=== PATIENT | female | born 1985 | race Caucasian/White ===

== ENCOUNTER 2023-03-01 09:30 | Day surgery (SDC) | payer OTHER, SELFPAY ==
--- NOTE | ~2023-03-01 | FL_ITS ---
EXAMINATION: FL GUIDED LUMBAR PUNCTURE CLINICAL INFORMATION: Pseudotumor cerebri. COMPARISON: Lumbar puncture 12/31/2019. TECHNIQUE: Following explaining fluoroscopy guidance lumbar puncture procedure, benefits and risk, a written consent was obtained. Patient was placed prone on fluoroscopy table and optimal site was selected along the L4-L5 disc level and marked on the skin. The marked area on the skin was cleaned and draped in the usual sterile manner with 2% chlorhexidine solution. 1% lidocaine was injected at puncture site. Under fluoroscopy guidance, a 22-gauge needle was advanced from the skin intrathecally at the L4-L5 disc level. After removing the stylet and observing CSF return, patient was quickly placed in left lateral decubitus position and opening CSF pressure was obtained. Subsequently, clear CSF fluid was collected in 4 test tubes. Postprocedure stylet was reintroduced and needle withdrawn. Complete hemostasis was achieved at puncture site. Sterile dressing applied postprocedure. Patient tolerated the procedure extremely well. FINDINGS: On the images obtained, the vertebral heights and alignment of the lower lumbar spine are normal. The opening CSF pressure measured 22 cm of water. Approximately clear CSF 11 mL was obtained and sent to lab as per referring physician's orders. FLUOROSCOPY TIME: 0.3 minutes DOSE AREA PRODUCT: 2.530 uGy-m2 (microgray-meter squared) FL/FL guided lumbar puncture LP IMPRESSION: Successful fluoroscopic-guided lumbar puncture performed without immediate complications. The opening CSF pressure measured 22 cm of water.
[2023-03-01 09:59] LABS: MANUAL DIFF FLAG NO
[2023-03-01 10:01] LABS: UPreg QC Valid YES; Urine Pregnancy NEGATIVE (NEGATIVE)
[2023-03-01 10:04] LABS: Basophils Percent Auto 0.3 % (0-2); Eosinophils Absolute Auto 0.1 X10*3/uL (0.0-0.4); Imm Gran Abs Auto 0.02 X10*3/uL (0.00-0.03); Imm Gran Pct Auto 0.3 % (0.0-0.4); Lymphocytes Absolute Auto 1.3 X10*3/uL (1.2-4.9); Lymphocytes Percent Auto 21.8 % (20-40); Mean Corpuscular HGB Conc 32.4 g/dl (31.0-35.0); Mean Corpuscular Hemoglobin 28.2 pg (27.0-33.0); Mean Corpuscular Volume 86.9 fL (80.0-98.0); Mean Platelet Volume 9.2 fL (9.4-12.3); Monocytes Absolute Auto 0.3 X10*3/uL (0.1-1.2); Monocytes Percent Auto 5.7 % (2-11); Neutrophils Absolute Auto 4.3 x10*3/uL (2.0-8.3); Neutrophils Percent Auto 70.9 % (45-73); Platelet Count 250 X10*3/uL (160-400); Red Blood Count 4.26 X10*6/uL (4.20-5.50); Red Cell Distribution Width 12.9 % (11.0-16.0)
[2023-03-01 10:07] VITALS: BMI 35.4
[2023-03-01 10:07] LABS: INTERNATIONAL NORM RATIO 1.1 (0.9-1.1); Prothrombin Time 12.5 SEC (10.0-13.1)
[2023-03-01 10:10] LABS: Partial Thromboplastin Time 30.1 SEC (26.0-36.4)
[2023-03-01 12:40] VITALS: BP 115/73; PULSE 83; RESP 16; TEMP 36.8; O2SAT 98
[2023-03-01 13:10] VITALS: BP 93/50; PULSE 80; RESP 16; O2SAT 98
[2023-03-01 13:28] LABS: CSF Appearance Clear, Colorless; CSF Tube # 1
[2023-03-01 13:32] LABS: Glucose CSF 62 mg/dL; Total Protein CSF 54.5 mg/dL (15-45)
[2023-03-01 13:40] VITALS: BP 115/73; PULSE 82; RESP 16; O2SAT 98
[2023-03-01 14:08] LABS: Appearance CSF CLEAR; CSF Tube # 4
[2023-03-01 14:09] LABS: Color CSF COLORLESS; Lymphocytes CSF 100 %; Red Blood Cell CSF 0 MM*3; White Blood Cell CSF 4 MM*3
[2023-03-01 14:10] VITALS: BP 110/58; PULSE 79; RESP 16; O2SAT 98
== END 2023-03-01 14:36 | disposition home or self-care (01) ==
PROVIDERS: Psychiatry & Neurology Neurology; Radiology Diagnostic Radiology; PCP Physician Assistant; Visit Provider Radiology Diagnostic Radiology
PROC: 009U3ZZ Drainage of Spinal Canal, Percutaneous Approach (ICD-10-PCS; CPT 62270; principal; 2023-03-01 11:00)
DX: G93.2 Benign intracranial hypertension (principal); G97.1 Other reaction to spinal and lumbar puncture
CPT/HCPCS: 36415; 62328; 81025; 82945; 84157; 85025; 85610; 85730; 87015; 87070; 87205; 89051